=== PATIENT | male | born 2000 | race African-American/Black ===

== ENCOUNTER 2018-02-25 02:33 | Inpatient (IN) ==
[2018-02-25] MEDS ORDERED: ACETAMINOPHEN 325 MG TABLET PO PRN (03:37)
[2018-02-25] MEDS: CEFTAROLINE 600 MG in SODIUM CHLORIDE 0.9% 100 ML IV SCH ×2 (06:19→16:41)
[2018-02-25 07:14] LABS: Basophils # 0.1 10*3/uL (0.0-0.2); Basophils % 0.7 % (0.0-0.8); Eosinophils # 0.3 10*3/uL (0.0-0.87); Eosinophils % 1.9 % (0.00-10.9); Hematocrit 43.1 VOL% (42.0-52.0); Hemoglobin 14.9 GM/DL (14.0-18.0); Immature Granulocytes % 0.4 %; Immature Granulocytes Absolute 0.06 #; Lymphocytes # 1.4 10*3/uL (1.4-4.0); Lymphocytes % 10.2 % (21.2-54.2); Mean Corpuscular HGB Conc 34.6 GM/DL (32-36); Mean Corpuscular Hemoglobin 32 PG (27-34); Mean Corpuscular Volume 91.5 FL (87-102); Mean Platelet Volume 10.5 FL (9.6-12.0); Monocytes # 1.7 10*3/uL (0.11-0.8); Neutrophils # 10.3 10*3/uL (1.4-7.4); Neutrophils % 74.8 % (38.7-73.9); Platelet Count 196 T/CUMM (130-400); Red Blood Count 4.71 MC/CUMM (3.8-5.5); Red Cell Distribution Width 12.3 % (9.3-17.3); White Blood Count 13.8 T/CUMM (4-12)
[2018-02-25 07:43] LABS: Albumin 3.3 G/DL (3.4-5.0); Bilirubin,Total 0.9 MG/DL (0.2-1.0); Calcium 8.1 MG/DL (8.5-10.1); Osmolality,Calculated 268.1 MOS/KG (273-304); Potassium 3.5 MMOL/L (3.5-5.1); Total Protein 7.7 G/DL (6.4-8.3)
[2018-02-25] MEDS ORDERED: INFLUENZA VIRUS VACCINE 0.5 ML SYRINGE IM ONE (09:00)
[2018-02-25] MEDS: PANTOPRAZOLE 40 MG TABLET PO SCH (09:00)
[2018-02-25] MEDS ORDERED: HYDROmorphone 2 MG/1 ML VIAL IV PRN (11:12)
[2018-02-25] MEDS ORDERED: ONDANSETRON 4 MG/2 ML VIAL IV PRN (12:17)
[2018-02-25] MEDS ORDERED: HYDROmorphone 2 MG/1 ML VIAL ONE (12:18)
[2018-02-25] MEDS ORDERED: ONDANSETRON 4 MG/2 ML VIAL ONE ×2 (12:18→12:33)
[2018-02-25] MEDS: HYDROmorphone 2 MG/1 ML VIAL IV PRN ×4 (12:20→12:35)
[2018-02-25] MEDS ORDERED: LACTATED RINGERS 1,000 ML IV SCH (12:30)
[2018-02-25] MEDS ORDERED: PROPOFOL 200 MG/20 ML VIAL IV ONE (12:32)
[2018-02-25] MEDS ORDERED: SEVOFLURANE 1 UNIT/15 MINUTE INH ONE (12:33)
[2018-02-25] MEDS ORDERED: DEXAMETHASONE 10 MG/1 ML VIAL ONE (12:33)
[2018-02-25] MEDS ORDERED: MIDAZOLAM 2 MG/2 ML VIAL ONE (12:33)
[2018-02-25] MEDS ORDERED: KETOROLAC 30 MG/1 ML VIAL ONE (12:33)
[2018-02-25] MEDS ORDERED: fentaNYL 100 MCG/2 ML VIAL ONE (12:33)
[2018-02-25] MEDS ORDERED: SUCCINYLCHOLINE 200 MG/10 ML VIAL ONE (12:34)
[2018-02-26] MEDS: CEFTAROLINE 600 MG in SODIUM CHLORIDE 0.9% 100 ML IV SCH ×2 (05:18→18:29)
[2018-02-26] MEDS: PANTOPRAZOLE 40 MG TABLET PO SCH (08:55)
[2018-02-26] MEDS ORDERED: FLUTICASONE 50 MCG NASAL SPRAY 16 GM BOTTLE BOTH NARES PRN ×2 (19:31→20:19)
[2018-02-27] MEDS: CEFTAROLINE 600 MG in SODIUM CHLORIDE 0.9% 100 ML IV SCH (06:34)
[2018-02-27] MEDS: PANTOPRAZOLE 40 MG TABLET PO SCH (09:29)
[2018-02-27] MEDS ORDERED: AMPICILLIN INJ 1,000 MG in SODIUM CHLORIDE 0.9% 100 ML IV SCH (11:00)
[2018-02-27 11:03] VITALS: BP 131/70
== END 2018-02-27 13:32 | disposition home or self-care (01) | DRG 581 ==
LOC: N.3E 03:38 → SUATTDRO 03:38 → N.3E 02-27 14:10
PROVIDERS: ADMIT Internal Medicine; ATTEND Family Medicine